=== PATIENT | female | born 1955 | race Caucasian/White ===

== ENCOUNTER → 2017-05-06 07:22 | Outpatient (CLI) | payer OTHER ==
[2017-05-06 08:19] LABS: CREATININE - SERUM 0.8 mg/dL (0.6-1.3)
== END | disposition home or self-care (01) ==
LOC: D.CT 05-04 13:30
PROVIDERS: Family Medicine
DX: K57.90 Diverticulosis of intestine, part unspecified, without perforation or abscess without bleeding (principal)

== ENCOUNTER → 2017-10-20 11:01 | Outpatient (CLI) | payer OTHER ==
[~2017-10-20 11:01] MED LIST: CALCIUM 500 + D1 TAB PO; ESTRACE 0.5 MG0.5 MG PO; GEMFIBROZIL600 MG PO; NORCO 7.5/325 T1 TA1 PO; PROTONIX40 MG PO
[2017-10-20 12:04] LABS: CREATININE - SERUM 0.7 mg/dL (0.6-1.3)
== END | disposition home or self-care (01) ==
LOC: D.CT 11:00
PROVIDERS: Internal Medicine Gastroenterology
DX: R10.30 Lower abdominal pain, unspecified (principal); Z87.19 Personal history of other diseases of the digestive system

== ENCOUNTER 2017-11-09 07:45 | Inpatient (IN) | payer OTHER ==
[2017-11-08 11:19] LABS: BASOPHILS 0.3 % (0-2); EOSINOPHILS 0.7 % (0-7); HEMATOCRIT 43.2 % (36.0-48.0); HEMOGLOBIN 14.2 g/dL (12-16); IMMATURE GRANULOCYTES 0.1 % (0-5); LYMPHOCYTES 24.1 % (15-50); MCH 29.7 pg (26.0-34.0); MCHC 32.9 g/dL (31.0-37.0); MCV 90.4 fL (80.0-100.0); MEAN PLATELET VOLUME 9.4 fL (7.4-10.4); MONOCYTES 7.3 % (2-11); NEUTROPHILS 67.5 % (40-80); PLATELET COUNT 386 10x3/uL (130-400); RBC 4.78 10x6/uL (4.00-5.40); RDW 13.1 % (11.5-14.5); WBC 6.8 10x3/uL (4.8-10.8)
[2017-11-08 11:33] LABS: CALC OSMOLALITY 286 mosm/kg (275-300); CALCIUM 9.7 mg/dL (8.5-10.1); CARBON DIOXIDE 27.1 mmol/L (21.0-32.0); CHLORIDE - SERUM 102 mmol/L (98-107); CREATININE - SERUM 0.7 mg/dL (0.6-1.3); GLUCOSE 94 mg/dL (74-106); POTASSIUM - SERUM 3.9 mmol/L (3.5-5.1); SODIUM 142 mmol/L (136-145); UREA NITROGEN 25 mg/dL (7-18); eGFR NON AFRICAN AMERICAN 90 mL/min (90-120)
[~2017-11-09] VITALS: Ht 154.9 cm; Wt 48.1 kg
--- NOTE | ~2017-11-09 | OP ---
PATIENT NAME: LUISA AVILA MEDICAL RECORD: [id number] :53 LOCATION:[id number] ADMISSION DATE:11/09/17 SURGEON: SHAN DIETRICH MD DATE OF OPERATION: 11/09/2017 PREOPERATIVE DIAGNOSES: 1. Recurrent diverticulitis. 2. Hypercholesterolemia. 3. Polycystic kidney disease. POSTOPERATIVE DIAGNOSES: 1. Recurrent diverticulitis. 2. Hypercholesterolemia. 3. Polycystic kidney disease. PROCEDURE: Hand-assisted laparoscopic sigmoid colectomy. SURGEON: Shan Dietrich MD ENGINEERING OFFICER: Christina Leo APRN REPORT OF OPERATION: The patient's abdomen and perineal region were prepped and draped in sterile fashion. A skin incision was made in the lower midline. Electrocautery was used to dissect through the subcutaneous tissues and through the fascia into the abdominal cavity. Once inside, a GelPort was inserted with a 5-mm trocar within it. Under direct visualization, a 5-mm trocar was placed in the right lateral abdomen and a 12-mm trocar was placed in the area just anterior to the right anterior-superior iliac crest. There were some adhesions to the anterior abdominal wall of the cecum. These were taken down with sharp dissection. Once I was able to feel around in the patient's pelvis, there were lot of inflammatory changes present. There were some adhesions to the lateral pelvic nicolas. These were taken down with blunt dissection. We eventually were able to free up this section of inflamed distal sigmoid colon. We scored the peritoneum on both sides and eventually made a small window through the mesocolon at this most superior aspect of the rectum. We then transected the proximal rectum at the rectosigmoid junction using a 45 blue load Endo-OSCAR stapler. The mesentery was then taken down with 2 fires of 45 white load Endo-OSCAR stapler. At this point, we eviscerated the sigmoid colon out of the wound protector. The remaining vessels were tied off with 3-0 silk ties. We then transected the proximal sigmoid/distal descending colon using electrocautery. A 2-0 Prolene was used to make a pursestring and a 29 EEA anvil was inserted. The pursestring was tied down tightly. We then inserted the distal colon and the anvil into the abdominal cavity. At this point, Ms. Leo inserted the anal dilators and was able to pass the 29 EEA stapler through the rectum. An EEA anastomosis was performed with a 29 EEA stapler and we then checked it to make sure there were 2 good rings of tissue, which there were. We then instilled air into the rectum with the anastomosis under water and saw there was no sign of a leak present. We then oversewed the staple line using multiple Lemberted 3-0 silks. We irrigated out the abdomen one last time and inspected again to make sure there was no sign of any active bleeding, which there was none. The bowels themselves appeared to be in good anatomical position with no signs of any kinking. The wound protector was then removed along with the trocars. The midline fascia was closed with running #1 loop PDS's times 2. We then irrigated out the wound thoroughly with normal saline. The 12-mm trocar site fascia was closed with a single interrupted #0 Vicryl and OPERATIVE REPORT [id number] LUISA AVILA the skin incisions were all closed with cat. COMPLICATIONS: None. CONDITION: Stable. ANESTHESIA: General endotracheal. BLOOD LOSS: Minimal. TRANSINT:[id number] Voice Confirmation ID: [id number] DOCUMENT ID: [id number] SHAN DIETRICH MD at 1052 CC: NICKO PATTERSON MD and CURT DELANEY DO [id number] DICTATION DATE: 11/09/17 1228 CUSTOMER CARE ASSOCIATE: 11/09/17 1417 ADM IN [facility] [address] [place] [address]
--- NOTE | ~2017-11-09 | DS ---
PATIENT:LUISA AVILA :53 MEDICAL RECORD: [id number] DISCHARGE SUMMARY ADMISSION DATE: 11/09/17 DISCHARGE DATE: 11/12/17 DATE OF ADMISSION: 11/09/2017. DATE OF DISCHARGE: 11/12/2017. ADMISSION DIAGNOSES: 1. Recurrent diverticulitis. 2. Hypercholesterolemia. 3. Polycystic kidney disease. DISCHARGE DIAGNOSES: 1. Recurrent diverticulitis. 2. Hypercholesterolemia. 3. Polycystic kidney disease. PROCEDURE: Hand-assisted laparoscopic sigmoid colectomy on 11/09/2017. CONSULTATIONS: None. REPORT OF HOSPITALIZATION: The patient was admitted to the hospital after a successful hand-assisted laparoscopic sigmoid colectomy for recurrent diverticular disease. The patient had a normal postoperative course with no complications. On the day of discharge, the patient was tolerating a regular diet and ambulating appropriately with good pain control on p.o. pain meds. Her path report was not back on the day of discharge. DISCHARGE INSTRUCTIONS: Return to clinic or call if any questions or concerns, fevers, chills, nausea, vomiting, or worsening abdominal pain. ACTIVITIES: No heavy lifting or straining for 6 weeks postoperatively. FOLLOWUP: In clinic with me in 10-14 days. DISCHARGE MEDICATIONS: Resume home meds with the inclusion of [place] 10. TRANSINT:[id number] Voice Confirmation ID: [id number] DOCUMENT ID: [id number] TIO DIETRICH MD at 1409 CC: [id number] DICTATION DATE: 11/12/17 0908 SENIOR BUYER PLANNER: 11/12/17 1438 DIS IN 11/12/17 [place] [id number] [place] [id number]
[~2017-11-09 07:45] MED LIST changes: -NORCO 7.5/325 T1 TA1 PO
[2017-11-09 08:18] VITALS: BP 133/79
[2017-11-09 16:08] VITALS: BP 119/60
[2017-11-09 20:00] VITALS: BP 97/53
[2017-11-10 01:04] VITALS: BP 110/50
[2017-11-10 04:00] VITALS: BP 116/58
[2017-11-10 06:52] LABS: BASOPHILS 0.1 % (0-2); EOSINOPHILS 0.1 % (0-7); IMMATURE GRANULOCYTES 0.3 % (0-5); LYMPHOCYTES 16.5 % (15-50); MCH 28.9 pg (26.0-34.0); MCV 90.2 fL (80.0-100.0); MEAN PLATELET VOLUME 9.7 fL (7.4-10.4); MONOCYTES 8.8 % (2-11); NEUTROPHILS 74.2 % (40-80); PLATELET COUNT 361 10x3/uL (130-400); RDW 13.2 % (11.5-14.5); WBC 7.7 10x3/uL (4.8-10.8)
[2017-11-10 06:56] LABS: HEMATOCRIT 33.1 % (36.0-48.0); HEMOGLOBIN 10.6 g/dL (12-16); RBC 3.67 10x6/uL (4.00-5.40)
[2017-11-10 07:08] LABS: CALC OSMOLALITY 280 mosm/kg (275-300); CALCIUM 8.2 mg/dL (8.5-10.1); CARBON DIOXIDE 25.6 mmol/L (21.0-32.0); CHLORIDE - SERUM 106 mmol/L (98-107); CREATININE - SERUM 0.7 mg/dL (0.6-1.3); GLUCOSE 96 mg/dL (74-106); POTASSIUM - SERUM 3.4 mmol/L (3.5-5.1); SODIUM 140 mmol/L (136-145); eGFR NON AFRICAN AMERICAN 90 mL/min (90-120)
[2017-11-10 07:11] LABS: UREA NITROGEN 17 mg/dL (7-18)
[2017-11-10 09:21] VITALS: BP 87/42
[2017-11-10 12:31] VITALS: BP 94/47
[2017-11-10 14:13] VITALS: Ht 154.9 cm; Wt 48.1 kg
[2017-11-10 16:00] VITALS: BP 102/57
[2017-11-10 20:00] VITALS: BP 104/53
[2017-11-11] VITALS: BP 102/51
[2017-11-11 04:00] VITALS: BP 105/54
[2017-11-11 05:10] LABS: BASOPHILS 0.3 % (0-2); EOSINOPHILS 0.3 % (0-7); HEMATOCRIT 29.8 % (36.0-48.0); HEMOGLOBIN 9.4 g/dL (12-16); IMMATURE GRANULOCYTES 0.2 % (0-5); LYMPHOCYTES 16.2 % (15-50); MCHC 31.5 g/dL (31.0-37.0); MEAN PLATELET VOLUME 9.9 fL (7.4-10.4); MONOCYTES 6.5 % (2-11); NEUTROPHILS 76.5 % (40-80); PLATELET COUNT 295 10x3/uL (130-400); RBC 3.24 10x6/uL (4.00-5.40); RDW 13.5 % (11.5-14.5); WBC 6.4 10x3/uL (4.8-10.8)
[2017-11-11 05:28] LABS: CALCIUM 7.8 mg/dL (8.5-10.1); CARBON DIOXIDE 22.9 mmol/L (21.0-32.0); CHLORIDE - SERUM 107 mmol/L (98-107); POTASSIUM - SERUM 3.1 mmol/L (3.5-5.1); SODIUM 141 mmol/L (136-145); UREA NITROGEN 15 mg/dL (7-18)
[2017-11-11 05:39] LABS: CALC OSMOLALITY 279 mosm/kg (275-300); CREATININE - SERUM 0.5 mg/dL (0.6-1.3); GLUCOSE 63 mg/dL (74-106); eGFR NON AFRICAN AMERICAN > 90 mL/min (90-120)
[2017-11-11 09:19] VITALS: BP 105/47
[2017-11-11 13:03] VITALS: BP 90/45
[2017-11-11 17:18] VITALS: BP 93/44
[2017-11-11 20:02] VITALS: BP 92/49
[2017-11-12 00:17] VITALS: BP 102/59
[2017-11-12 04:59] VITALS: BP 116/56
[2017-11-12 06:21] LABS: BASOPHILS 0.2 % (0-2); EOSINOPHILS 3.7 % (0-7); HEMATOCRIT 29.8 % (36.0-48.0); HEMOGLOBIN 9.4 g/dL (12-16); IMMATURE GRANULOCYTES 0.2 % (0-5); LYMPHOCYTES 26.9 % (15-50); MCH 28.4 pg (26.0-34.0); MCHC 31.5 g/dL (31.0-37.0); MONOCYTES 9.4 % (2-11); NEUTROPHILS 59.6 % (40-80); PLATELET COUNT 298 10x3/uL (130-400); RBC 3.31 10x6/uL (4.00-5.40); RDW 13.3 % (11.5-14.5); WBC 4.9 10x3/uL (4.8-10.8)
[2017-11-12 06:39] LABS: CALCIUM 7.9 mg/dL (8.5-10.1); CHLORIDE - SERUM 107 mmol/L (98-107); CREATININE - SERUM 0.6 mg/dL (0.6-1.3); GLUCOSE 87 mg/dL (74-106); SODIUM 143 mmol/L (136-145); eGFR NON AFRICAN AMERICAN > 90 mL/min (90-120)
[2017-11-12 06:40] LABS: CALC OSMOLALITY 282 mosm/kg (275-300); UREA NITROGEN 10 mg/dL (7-18)
[2017-11-12 08:18] VITALS: BP 106/58
[2017-11-12] MEDS ORDERED: NORCO 7.5/325 T1 TA1 PO (09:04)
== END 2017-11-12 10:53 | disposition home or self-care (01) | DRG 330 ==
LOC: D.MS 07:45 → D.SDCHOLD 07:45 → D.MS 13:07
PROVIDERS: Surgery
PROC: 0DBN0ZZ Excision of Sigmoid Colon, Open Approach (ICD-10-PCS; principal; 2017-11-09 09:45)
DX: K57.32 Diverticulitis of large intestine without perforation or abscess without bleeding (principal); Q61.3 Polycystic kidney, unspecified; E78.00 Pure hypercholesterolemia, unspecified

== ENCOUNTER → 2020-09-19 14:52 | Outpatient (CLI) | payer OTHER ==
[~2020-09-19 14:52] MED LIST changes: +NORCO 7.5/325 T1 TA1 PO
== END | disposition home or self-care (01) ==
LOC: D.US 14:52
PROVIDERS: ATTEND Family Medicine
DX: I70.202 Unspecified atherosclerosis of native arteries of extremities, left leg (principal); I73.9 Peripheral vascular disease, unspecified